=== PATIENT | female | born 1965 | race Two or more races ===

== ENCOUNTER 2019-10-13 09:22 | Outpatient (CLI) | payer OTHER | END 2019-10-13 10:00 | disposition home or self-care (01) | LOC: NUCLEAR 09:22 | DX: E05.00 Thyrotoxicosis with diffuse goiter without thyrotoxic crisis or storm (principal) | CPT/HCPCS: 78012; A9531 ==

== ENCOUNTER → 2019-10-14 | Outpatient (CLI) | payer OTHER | END | disposition home or self-care (01) | LOC: NUCLEAR 10-12 09:00 | DX: E05.00 Thyrotoxicosis with diffuse goiter without thyrotoxic crisis or storm (principal) | CPT/HCPCS: 78013; A9512 ==

== ENCOUNTER 2019-10-18 13:53 | Outpatient (CLI) | payer OTHER | END 2019-10-19 07:37 | disposition home or self-care (01) | LOC: MAMO-SONO 13:53 | DX: Z12.31 Encounter for screening mammogram for malignant neoplasm of breast (principal); Z87.898 Personal history of other specified conditions; R92.1 Mammographic calcification found on diagnostic imaging of breast; N60.12 Diffuse cystic mastopathy of left breast; N60.11 Diffuse cystic mastopathy of right breast; R68.82 Decreased libido; N95.0 Postmenopausal bleeding; N83.02 Follicular cyst of left ovary; R10.84 Generalized abdominal pain; N39.0 Urinary tract infection, site not specified; D25.1 Intramural leiomyoma of uterus ==

== ENCOUNTER → 2019-11-19 | Outpatient (CLI) | payer OTHER | END | disposition home or self-care (01) | LOC: TOM 07:45 | DX: R10.10 Upper abdominal pain, unspecified (principal) ==

== ENCOUNTER 2019-12-21 08:54 | Outpatient (CLI) | payer OTHER | END 2019-12-21 17:33 | disposition home or self-care (01) | LOC: LAB 08:54 | DX: N20.0 Calculus of kidney (principal) ==

== ENCOUNTER 2019-12-23 15:28 | Outpatient (CLI) | payer OTHER | END 2019-12-23 15:32 | disposition home or self-care (01) | LOC: TOM 15:28 | DX: K57.00 Diverticulitis of small intestine with perforation and abscess without bleeding (principal) ==

== ENCOUNTER 2020-04-20 08:22 | Outpatient (CLI) | payer OTHER | END 2020-04-20 08:24 | disposition home or self-care (01) | LOC: SONOGRAMA 08:22 → MAMO-SONO 10:15 | PROVIDERS: ATTEND Internal Medicine Endocrinology, Diabetes & Metabolism | DX: R10.10 Upper abdominal pain, unspecified (principal); E04.1 Nontoxic single thyroid nodule ==

== ENCOUNTER 2020-05-29 07:24 | Outpatient (CLI) | payer OTHER | END 2020-05-29 07:41 | disposition home or self-care (01) | LOC: NUCLEAR 07:24 | PROVIDERS: ATTEND Internal Medicine Endocrinology, Diabetes & Metabolism | DX: E05.00 Thyrotoxicosis with diffuse goiter without thyrotoxic crisis or storm (principal) | CPT/HCPCS: 78012; A9531 ==

== ENCOUNTER 2020-09-18 11:27 | Outpatient (CLI) | payer OTHER | END 2020-09-18 11:34 | disposition home or self-care (01) | LOC: SONOGRAMA 11:27 | PROVIDERS: ATTEND Pathology Anatomic Pathology & Clinical Pathology | DX: E04.2 Nontoxic multinodular goiter (principal) ==

== ENCOUNTER 2024-09-30 10:22 | Outpatient (CLI) | payer OTHER | END 2024-09-30 10:26 | disposition home or self-care (01) | LOC: SONOGRAMA 10:22 | PROVIDERS: ATTEND Pathology Anatomic Pathology & Clinical Pathology | DX: D34 Benign neoplasm of thyroid gland (principal); E07.89 Other specified disorders of thyroid; E04.2 Nontoxic multinodular goiter ==